=== PATIENT | male | born 1975 | race Two or more races ===

== ENCOUNTER 2019-08-09 03:19 | Emergency (ER) | payer SELFPAY ==
[~2019-08-09] VITALS: Ht 165.1 cm; Wt 81.6 kg
[2019-08-09 03:40] VITALS: BP 129/76
--- NOTE | 2019-08-09 03:55 | PHYS DOC ---
Adult General Chief Complaint Chief Complaint: BACK INJURY HPI HPI 44-year-old male presents to the emergency department after a fall today at noon at work. Patient states he was at work and fell injuring his back off of 2 steps of the ladder. He states the pain is described in the middle of his back, sharp pain worsening with movements. He denies any nausea, vomiting, abdominal pain, chest pain, shortness of breath, headache or visual change. There was no loss of consciousness. Patient has no past medical history. He presents to the emergency department secondary to increased pain. He has no difficulty with bowel or bladder function he is able urinate as well as defecate. All other ROS negative unless documented in HPI Review of Systems Review of Systems See Above Current Medications Current Medications Current Medications Medications (Trade) Dose Ordered Sig/Roxana Start Time Stop Time Status Last Admin Dose Admin Ketorolac Tromethamine (Toradol Im) 60 mg 1X ONCE 08/09/19 04:30 08/09/19 04:31 08/09/19 04:04 60 MG Orphenadrine Citrate (Norflex) 60 mg 1X ONCE 08/09/19 04:30 08/09/19 04:31 08/09/19 04:04 60 MG Allergies Allergies Allergies Coded Allergies Type Severity Reaction Last Updated Verified No Known Drug Allergies 08/09/19 No Physical Exam Physical Exam See Above Constitutional: Well developed, well nourished, no acute distress, non-toxic appearance. [] HENT: Normocephalic, atraumatic, bilateral external ears normal, oropharynx moist, no oral exudates, nose normal. [] Eyes: PERRLA, EOMI, conjunctiva normal, no discharge. [] Neck: Normal range of motion, no tenderness, supple, no stridor. [] Cardiovascular:Heart rate regular rhythm, no murmur [] Lungs & Thorax: Bilateral breath sounds clear to auscultation [] Abdomen: Bowel sounds normal, soft, no tenderness, no masses, no pulsatile masses. [] Skin: Warm, dry, no erythema, no rash. [] Back: tenderess to thoracic, point tenderness along the midline thoracic Extremities: No tenderness, no edema. [] Neurologic: Alert and oriented X 3, no focal deficits noted, negative SLR[] Psychologic: Affect normal, judgement normal, mood normal. [] Current Patient Data Vital Signs Vital Signs Date Time Temp Pulse Resp B/P (MAP) Pulse Ox O2 Delivery O2 Flow Rate FiO2 08/09/19 03:40 98.5 74 17 129/76 (93) 95 Room Air 98.5 EKG EKG [] Radiology/Procedures Radiology/Procedures [facility] [address] [place] [address] IMAGING REPORT Signed PATIENT: ERIN COHEN ACCOUNT: [id number] : 1975 LOCATION: ER AGE: 44 SEX: M EXAM STATUS: REG ER ORD. PHYSICIAN: RODNEY CHAVEZ MD REASON: fall from ladder, no blood thinning medications, no LOC PROCEDURE: CT THORACIC SPINE WO CONTRAST CT thoracic spine without contrast HISTORY: Fall FINDINGS: Thoracic vertebral body height and alignment intact. No fracture. No spondylolysis defect. The bony spinal canal is grossly patent. Paraspinal tissues unremarkable. Left adrenal adenoma density of 1 unit diameter 2 cm. IMPRESSION: No acute osseous injury of the thoracic spine. Exposure: One or more of the following individualized dose reduction techniques were utilized for this examination: 1. Automated exposure control 2. Adjustment of the mA and/or kV according to patient size 3. Use of iterative reconstruction technique Electronically signed by: Kelsea Denis MD (08/09/2019 4:17 AM) [facility] DICTATED and SIGNED BY: KELSEA DENIS MD DATE: 08/09/19 0417 [] Course & Med Decision Making Course & Med Decision Making Pertinent Labs and Imaging studies reviewed. (See chart for details) []44-year-old male presents to the emergency department after a fall today at noon at work. Patient states he was at work and fell injuring his back off of 2 steps of the ladder. He states the pain is described in the middle of his back, sharp pain worsening with movements. He denies any nausea, vomiting, abdominal pain, chest pain, shortness of breath, headache or visual change. There was no loss of consciousness. Patient has no past medical history. He presents to the emergency department secondary to increased pain. He has no difficulty with bowel or bladder function he is able urinate as well as defecate. Dragon Disclaimer Dragon Disclaimer This electronic medical record was generated, in whole or in part, using a voice recognition dictation system. Departure Departure Impression: Primary Impression: Fall Additional Impression: Thoracic back pain Disposition: HOME, SELF-CARE Condition: IMPROVED Referrals: NO PCP (PCP) Patient Instructions: Back Pain, Adult, [id number] Additional Instructions: Recommend follow up with PCP 3 - 5 days Return to the ER with worsening symptoms, intractable pain, fever, altered mental status Tylenol/Motrin as needed for pain Flexeril rx privded for muscle spasm Tramadol rx provided for pain CT negative for acute process, no fracture identified Scripts Cyclobenzaprine Hcl (CYCLOBENZAPRINE HCL) 5 Mg Tablet 1 TAB PO TID, #30 TAB Prov: RODNEY CHAVEZ MD 08/09/19 Tramadol Hcl (TRAMADOL HCL) 50 Mg Tablet 50 MG PO Q6HRS PRN for PAIN for 3 Days, #12 TAB Prov: RODNEY CHAVEZ MD 08/09/19 Problem Qualifiers Primary Impression: Fall Encounter type: initial encounter Qualified Codes: W19.XXXA - Unspecified fall, initial encounter Additional Impression: Thoracic back pain Chronicity: acute Back pain laterality: midline Qualified Codes: M54.6 - Pain in thoracic spine RODNEY CHAVEZ MD Aug 09, 2019 03:55
--- NOTE | 2019-08-09 04:20 | RAD ---
CT thoracic spine without contrast HISTORY: Fall FINDINGS: Thoracic vertebral body height and alignment intact. No fracture. No spondylolysis defect. The bony spinal canal is grossly patent. Paraspinal tissues unremarkable. Left adrenal adenoma density of 1 unit diameter 2 cm. IMPRESSION: No acute osseous injury of the thoracic spine. Exposure: One or more of the following individualized dose reduction techniques were utilized for this examination: 1. Automated exposure control 2. Adjustment of the mA and/or kV according to patient size 3. Use of iterative reconstruction technique Electronically signed by: Rohit Denis MD (08/09/2019 4:17 AM) [facility]
[2019-08-09] MEDS ORDERED: CYCL5TAB PO (04:26)
[2019-08-09] MEDS ORDERED: TRAM50TA PO (04:26)
[2019-08-09] MEDS ORDERED: ORPHENADRINE CITRATE 60 MG/2 ML VIAL. IM ONE (04:30)
[2019-08-09] MEDS ORDERED: KETOROLAC 60 MG/2 ML VIAL. IM ONE (04:30)
== END 2019-08-09 04:35 | disposition home or self-care (01) ==
LOC: ER 03:19
DX: G89.11 Acute pain due to trauma (principal); M54.6 Pain in thoracic spine; W11.XXXA Fall on and from ladder, initial encounter; Y93.89 Activity, other specified; Y92.89 Other specified places as the place of occurrence of the external cause; Y99.0 Civilian activity done for income or pay
CPT/HCPCS: 72128; 96372; 99284; J1885; J2360